=== PATIENT | female | born 2000 | race African-American/Black ===

== ENCOUNTER 2023-10-31 21:24 | Observation (INO) | payer MEDICAID ==
[~2023-10-31] VITALS: Ht 149.9 cm; Wt 68.0 kg
[2023-10-31] MEDS ORDERED: FERR-7 PO (22:03)
[2023-10-31] MEDS ORDERED: PREN-96 PO (22:03)
[2023-10-31] MEDS: LIDOCAINE 2%HCL (LOCAL ANESTH.) INJ 10ml MDV ONE (23:00)
[2023-10-31] MEDS: cefTRIAXone SOD 1,000 MG VL ONE (23:05)
[2023-10-31] MEDS: cefTRIAXone W LIDOCAINE 1 GM IM IM ONE (23:17)
== END 2023-10-31 23:41 | disposition home or self-care (01) ==
LOC: LDRP 21:24
PROVIDERS: ADMIT Obstetrics & Gynecology; ATTEND Obstetrics & Gynecology
DX: O62.9 Abnormality of forces of labor, unspecified (principal); O26.893 Other specified pregnancy related conditions, third trimester; R10.9 Unspecified abdominal pain; Z3A.37 37 weeks gestation of pregnancy
CPT/HCPCS: 59025; 81002; 94760; 96372; G0378; J0696; J2001